=== PATIENT | male | born 1935 | race Caucasian/White ===

== ENCOUNTER 2017-08-24 08:32 | Emergency (ER) | payer BC, MEDICAID, OTHER ==
[2017-08-24] MEDS: ONDANSETRON 4 MG INJ IV (09:49)
[2017-08-24] MEDS: SOD CHLORIDE 0.9% 1,000 ML IV (09:49)
[2017-08-24] MEDS: LOPERAMIDE 2 MG CAP PO (09:49)
[2017-08-24] MEDS: morphine 4 MG/ML VIAL IV (09:54)
[2017-08-24 10:31] LABS: ADD MAN DIFF? NO
[2017-08-24 10:33] LABS: BASOPHILS % 0.2 % (0.0-2.0); HEMATOCRIT 41.6 % (42.0-52.0); HEMOGLOBIN 14.1 g/dl (14.0-18.0); LYMPHOCYTES # 1.7 10^3/ul (0.8-2.9); LYMPHOCYTES % 17.6 % (15.0-51.0); MEAN CORPUSCULAR HEMOGLOBIN 32.7 pg (29.0-33.0); MEAN CORPUSCULAR HGB CONC 33.9 g/dl (32.0-37.0); MEAN CORPUSCULAR VOLUME 96.5 fl (82.0-101.0); MONOCYTE # 0.6 10^3/ul (0.3-0.9); MONOCYTES % 5.8 % (0.0-11.0); NEUTROPHIL # 7.2 10^3/ul (1.6-7.5); NEUTROPHILS % 75.9 % (39.0-77.0); PLATELET COUNT 130 10^3/UL (140-415); POSITIVE DIFF @See below; RED BLOOD COUNT 4.31 10^6/ul (4.70-6.10); RED CELL DISTRIBUTION WIDTH 13.2 % (11.5-14.5)
[2017-08-24 10:33] LABS: WHITE BLOOD COUNT 9.5 10^3/ul (4.8-10.8)
[2017-08-24 10:37] LABS: MEAN PLATELET VOLUME 11.7 fl (7.4-10.4)
[2017-08-24 10:52] LABS: ALANINE AMINOTRANSFERASE 41 IU/L (13-69); ALBUMIN 3.8 g/dl (3.3-4.9); ALKALINE PHOSPHATASE 91 IU/L (42-121); ANION GAP 14 (8-16); ASPARTATE AMINO TRANSFERASE 28 IU/L (15-46); BILIRUBIN,INDIRECT 0.9 mg/dl (0-1.1); BILIRUBIN,TOTAL 0.9 mg/dl (0.2-1.3); BLOOD UREA NITROGEN 19 mg/dl (7-20); CALCIUM 9.1 mg/dl (8.4-10.2); CARBON DIOXIDE 30 mmol/L (21-31); CHLORIDE 104 mmol/L (97-110); CREATININE 0.98 mg/dl (0.61-1.24); GLUCOSE 94 mg/dl (70-220); LIPASE 42 U/L (23-300); POTASSIUM 4.2 mmol/L (3.5-5.1); SODIUM 144 mmol/L (135-144); TOTAL PROTEIN 7.6 g/dl (6.1-8.1)
[2017-08-24 10:59] LABS: B-TYPE NATRIURETIC PEPTIDE 91 PG/ML (0-450)
[2017-08-24 11:26] LABS: INR 1.02; PROTIME 13.5 Sec (11.9-14.9); PT RATIO 1.1
[2017-08-24 11:27] LABS: PARTIAL THROMBOPLASTIN TIME 40.5 Sec (25.0-35.0)
== END 2017-08-24 13:30 | disposition home or self-care (01) ==
LOC: E/R 08:32
DX: E86.0 Dehydration (principal); R19.7 Diarrhea, unspecified; I10 Essential (primary) hypertension; R10.9 Unspecified abdominal pain; Z79.82 Long term (current) use of aspirin
CPT/HCPCS: 36415; 74176; 80053; 83690; 83880; 85025; 85610; 85730; 96374; 99285-25

== ENCOUNTER 2018-04-09 03:33 | Inpatient (IN) | payer OTHER, BC, MEDICAID ==
[2018-04-09 04:26] LABS: ADD MAN DIFF? NO
[2018-04-09 04:33] LABS: BASOPHILS % 0.2 % (0.0-2.0); HEMATOCRIT 43.6 % (42.0-52.0); HEMOGLOBIN 14.8 g/dl (14.0-18.0); LYMPHOCYTES # 0.9 10^3/ul (0.8-2.9); LYMPHOCYTES % 7.9 % (15.0-51.0); MEAN CORPUSCULAR HEMOGLOBIN 33.3 pg (29.0-33.0); MEAN CORPUSCULAR HGB CONC 33.9 g/dl (32.0-37.0); MEAN PLATELET VOLUME 11.7 fl (7.4-10.4); MONOCYTE # 0.6 10^3/ul (0.3-0.9); MONOCYTES % 5.5 % (0.0-11.0); NEUTROPHILS % 86.1 % (39.0-77.0); PLATELET COUNT 142 10^3/UL (140-415); RED BLOOD COUNT 4.45 10^6/ul (4.70-6.10); RED CELL DISTRIBUTION WIDTH 12.8 % (11.5-14.5)
[2018-04-09 04:33] LABS: WHITE BLOOD COUNT 11.6 10^3/ul (4.8-10.8)
[2018-04-09] MEDS: ONDANSETRON 4 MG INJ IV (04:42)
[2018-04-09] MEDS: SOD CHLORIDE 0.9% 500 ML IV (04:42)
[2018-04-09] MEDS: morphine 2 MG INJ IV (04:44)
[2018-04-09 04:50] LABS: ALANINE AMINOTRANSFERASE 52 IU/L (13-69); ALBUMIN 4.2 g/dl (3.3-4.9); ALKALINE PHOSPHATASE 87 IU/L (42-121); ANION GAP 9 (5-13); ASPARTATE AMINO TRANSFERASE 44 IU/L (15-46); BILIRUBIN,INDIRECT 0.5 mg/dl (0-1.1); BILIRUBIN,TOTAL 0.5 mg/dl (0.2-1.3); BLOOD UREA NITROGEN 21 mg/dl (7-20); CALCIUM 9.3 mg/dl (8.4-10.2); CARBON DIOXIDE 26 mmol/L (21-31); CHLORIDE 108 mmol/L (97-110); CREATININE 0.98 mg/dl (0.61-1.24); GLUCOSE 142 mg/dl (70-220); LIPASE 39 U/L (23-300); POTASSIUM 4.2 mmol/L (3.5-5.1); SODIUM 143 mmol/L (135-144)
[2018-04-09 05:01] LABS: TROPONIN-I < 0.012 ng/ml (0.000-0.120)
[2018-04-09 05:24] LABS: ADD UMIC YES; UR AMORPHOUS CRYSTAL FEW /HPF (NONE SEEN); UR ASCORBIC ACID 20 mg/dL (NEGATIVE); UR BACTERIA FEW /HPF (NONE SEEN); UR BILIRUBIN (Dip) NEGATIVE (NEGATIVE); UR BLOOD (Dip) 2+ mg/dL (NEGATIVE); UR CLARITY SLIGHTLY CLOUDY (CLEAR); UR COLOR YELLOW (YELLOW); UR GLUCOSE (Dip) NEGATIVE (NEGATIVE); UR KETONES (Dip) NEGATIVE (NEGATIVE); UR LEUKOCYTE ESTERASE (Dip) 3+ Leu/ul (NEGATIVE); UR NITRITE (Dip) NEGATIVE (NEGATIVE); UR RBC 171 /HPF (0-5); UR SPECIFIC GRAVITY (Dip) 1.021 (1.003-1.030); UR SQUAMOUS EPITHELIAL CELL FEW /HPF (FEW); UR TOTAL PROTEIN (Dip) 1+ mg/dl (NEGATIVE); UR UROBILINOGEN (Dip) 2+ mg/dL (NEGATIVE); UR WBC 103 /HPF (0-5)
[2018-04-09] MEDS ORDERED: NACL 0.9% 3 ML SYG IV (06:00)
[2018-04-09] MEDS ORDERED: ONDANSETRON 4 MG INJ IV (06:00)
[2018-04-09] MEDS ORDERED: ACETAMINOPHEN 325 MG TAB PO (06:00)
[2018-04-09] MEDS: PANTOPRAZOLE 40 MG INJ IV ×2 (06:12→17:48)
[2018-04-09] MEDS: CEFTRIAXONE 1 GM/50 ML (PMX) 50 ML IVPB (06:12)
[2018-04-09] MEDS: SOD CHLORIDE 0.9% 1,000 ML IV ×4 (06:12→21:28)
[2018-04-10] MEDS: ZOLPIDEM 5 MG TAB PO (01:01)
[2018-04-10] MEDS: CEFTRIAXONE 1 GM/50 ML (PMX) 50 ML IVPB (03:35)
[2018-04-10 05:23] LABS: ADD MAN DIFF? NO
[2018-04-10] MEDS: DIPHENHYDRAMINE 25 MG CAP PO (05:24)
[2018-04-10] MEDS: PANTOPRAZOLE 40 MG INJ IV (05:24)
[2018-04-10 05:30] LABS: BASOPHILS % 0.1 % (0.0-2.0); HEMATOCRIT 38.8 % (42.0-52.0); HEMOGLOBIN 13.2 g/dl (14.0-18.0); LYMPHOCYTES # 1.3 10^3/ul (0.8-2.9); LYMPHOCYTES % 15.1 % (15.0-51.0); MEAN CORPUSCULAR HEMOGLOBIN 33.8 pg (29.0-33.0); MEAN CORPUSCULAR VOLUME 99.5 fl (82.0-101.0); MEAN PLATELET VOLUME 11.4 fl (7.4-10.4); MONOCYTE # 0.5 10^3/ul (0.3-0.9); MONOCYTES % 5.6 % (0.0-11.0); NEUTROPHIL # 6.9 10^3/ul (1.6-7.5); NEUTROPHILS % 78.9 % (39.0-77.0); PLATELET COUNT 143 10^3/UL (140-415); RED CELL DISTRIBUTION WIDTH 12.8 % (11.5-14.5)
[2018-04-10 05:30] LABS: WHITE BLOOD COUNT 8.8 10^3/ul (4.8-10.8)
[2018-04-10 05:34] LABS: HEMOGLOBIN A1C 5.3 % (0-5.9)
[2018-04-10 05:51] LABS: ALANINE AMINOTRANSFERASE 43 IU/L (13-69); ALBUMIN 3.5 g/dl (3.3-4.9); ALBUMIN/GLOBULIN RATIO 1.02; ALKALINE PHOSPHATASE 73 IU/L (42-121); ANION GAP 13 (5-13); ASPARTATE AMINO TRANSFERASE 30 IU/L (15-46); BILIRUBIN,INDIRECT 0.4 mg/dl (0-1.1); BILIRUBIN,TOTAL 0.4 mg/dl (0.2-1.3); BLOOD UREA NITROGEN 17 mg/dl (7-20); CALCIUM 8.6 mg/dl (8.4-10.2); CARBON DIOXIDE 24 mmol/L (21-31); CHLORIDE 108 mmol/L (97-110); CREATININE 0.94 mg/dl (0.61-1.24); GLUCOSE 107 mg/dl (70-220); MAGNESIUM 1.9 mg/dl (1.7-2.5); POTASSIUM 3.9 mmol/L (3.5-5.1); SODIUM 145 mmol/L (135-144); TOTAL PROTEIN 6.9 g/dl (6.1-8.1)
[2018-04-10 06:16] LABS: THYROID STIMULATING HORMONE 0.302 MIU/L (0.465-4.680)
[2018-04-10] MEDS: CHOLECALCIFEROL 1,000 UNIT TAB PO (08:50)
[2018-04-10] MEDS: ASCORBIC ACID 500 MG TAB PO (08:50)
[2018-04-10] MEDS: SOD CHLORIDE 0.9% 1,000 ML IV (12:00)
== END 2018-04-10 16:22 | disposition home or self-care (01) | DRG 690 ==
LOC: FTE 03:33 → PP2 05:51
DX: N39.0 Urinary tract infection, site not specified (principal); I69.951 Hemiplegia and hemiparesis following unspecified cerebrovascular disease affecting right dominant side; K86.1 Other chronic pancreatitis; K29.80 Duodenitis without bleeding; K27.9 Peptic ulcer, site unspecified, unspecified as acute or chronic, without hemorrhage or perforation; I10 Essential (primary) hypertension; N40.0 Benign prostatic hyperplasia without lower urinary tract symptoms
CPT/HCPCS: 36415; 71045; 74176; 76775; 80053; 81001; 83036; 83690; 83735; 84443; 84484; 85025; 87081; 87086; 93005; 96374; 96375; 99285-25; G0378

== ENCOUNTER 2018-04-20 05:30 | Inpatient (IN) | payer OTHER, BC, MEDICAID ==
[2018-04-20] MEDS: ONDANSETRON 4 MG INJ IV ×2 (05:59→09:20)
[2018-04-20] MEDS: SOD CHLORIDE 0.9% 500 ML IV (05:59)
[2018-04-20 06:08] LABS: ADD MAN DIFF? NO
[2018-04-20 06:15] LABS: BASOPHILS % 0.2 % (0.0-2.0); HEMATOCRIT 38.6 % (42.0-52.0); HEMOGLOBIN 13.1 g/dl (14.0-18.0); LYMPHOCYTES # 1.1 10^3/ul (0.8-2.9); LYMPHOCYTES % 8.7 % (15.0-51.0); MEAN CORPUSCULAR HEMOGLOBIN 33.5 pg (29.0-33.0); MEAN CORPUSCULAR HGB CONC 33.9 g/dl (32.0-37.0); MEAN CORPUSCULAR VOLUME 98.7 fl (82.0-101.0); MEAN PLATELET VOLUME 11.7 fl (7.4-10.4); MONOCYTE # 0.7 10^3/ul (0.3-0.9); MONOCYTES % 5.7 % (0.0-11.0); NEUTROPHIL # 10.5 10^3/ul (1.6-7.5); NEUTROPHILS % 84.9 % (39.0-77.0); PLATELET COUNT 169 10^3/UL (140-415); RED BLOOD COUNT 3.91 10^6/ul (4.70-6.10); RED CELL DISTRIBUTION WIDTH 12.9 % (11.5-14.5)
[2018-04-20 06:15] LABS: WHITE BLOOD COUNT 12.4 10^3/ul (4.8-10.8)
[2018-04-20 06:38] LABS: ALANINE AMINOTRANSFERASE 62 IU/L (13-69); ALBUMIN/GLOBULIN RATIO 1.14; ALKALINE PHOSPHATASE 70 IU/L (42-121); ANION GAP 14 (5-13); ASPARTATE AMINO TRANSFERASE 51 IU/L (15-46); BILIRUBIN,INDIRECT 0.5 mg/dl (0-1.1); BILIRUBIN,TOTAL 0.5 mg/dl (0.2-1.3); BLOOD UREA NITROGEN 34 mg/dl (7-20); CARBON DIOXIDE 26 mmol/L (21-31); CHLORIDE 107 mmol/L (97-110); CREATININE 1.07 mg/dl (0.61-1.24); GLUCOSE 126 mg/dl (70-220); LIPASE 106 U/L (23-300); POTASSIUM 4.2 mmol/L (3.5-5.1); SODIUM 147 mmol/L (135-144); TOTAL PROTEIN 7.5 g/dl (6.1-8.1)
[2018-04-20 06:49] LABS: TROPONIN-I < 0.012 ng/ml (0.000-0.120)
[2018-04-20 07:03] LABS: ADD UMIC NO; UR ASCORBIC ACID NEGATIVE (NEGATIVE); UR BILIRUBIN (Dip) NEGATIVE (NEGATIVE); UR BLOOD (Dip) NEGATIVE (NEGATIVE); UR CLARITY CLEAR (CLEAR); UR COLOR YELLOW (YELLOW); UR GLUCOSE (Dip) NEGATIVE (NEGATIVE); UR KETONES (Dip) NEGATIVE (NEGATIVE); UR LEUKOCYTE ESTERASE (Dip) NEGATIVE Leu/ul (NEGATIVE); UR NITRITE (Dip) NEGATIVE (NEGATIVE); UR TOTAL PROTEIN (Dip) NEGATIVE (NEGATIVE); UR UROBILINOGEN (Dip) 2+ mg/dL (NEGATIVE)
[2018-04-20] MEDS: PANTOPRAZOLE 40 MG INJ IV ×2 (09:20→18:16)
[2018-04-20] MEDS ORDERED: LIDOCAINE 2% VISC 15 ML CUP (10:42)
[2018-04-20] MEDS: LIDOCAINE 2% VISC 15 ML CUP PO (11:11)
[2018-04-20] MEDS ORDERED: NACL 0.9% 3 ML SYG IV (14:00)
[2018-04-20] MEDS ORDERED: ACETAMINOPHEN 325 MG TAB PO (14:00)
[2018-04-20] MEDS: DILTIAZEM 30 MG TAB PO ×2 (14:32→22:18)
[2018-04-20] MEDS: METOCLOPRAMIDE 10 MG INJ IV (14:34)
[2018-04-20] MEDS ORDERED: PROPOFOL 20 ML (16:19)
[2018-04-20] MEDS ORDERED: MIDAZOLAM 1 MG/ML 2 ML INJ (16:20)
[2018-04-20] MEDS ORDERED: EPHEDrine SULFATE 50 MG/5 ML SYG IV (16:30)
[2018-04-20] MEDS ORDERED: hydrALAzine 20 MG INJ IV (16:30)
[2018-04-20] MEDS ORDERED: ONDANSETRON 4 MG INJ IV (16:30)
[2018-04-20] MEDS ORDERED: HYDROmorphONE 1 MG/5 ML IV SYRINGE IV ×3 (16:30)
[2018-04-20] MEDS ORDERED: LABETALOL HCL 20MG INJ IV (16:30)
[2018-04-20] MEDS ORDERED: DIPHENHYDRAMINE 50 MG INJ IV (16:30)
[2018-04-20] MEDS: SUCRALFATE (100 MG/ML) 10ML CUP PO ×2 (17:42→20:53)
[2018-04-20] MEDS: metroNIDAZOLE 500 MG/NS (PMX) 100 ML IVPB ×2 (18:18→22:18)
[2018-04-20 19:26] LABS: HEMATOCRIT 31.3 % (42.0-52.0); HEMOGLOBIN 10.5 g/dl (14.0-18.0)
[2018-04-20 19:43] LABS: LIPASE 37 U/L (23-300)
[2018-04-20] MEDS: CIPROFLOXACIN 400MG/D5W 200 ML IVPB (20:53)
[2018-04-20] MEDS: FERROUS SULFATE (EC) 325 MG TAB PO (20:53)
[2018-04-21] MEDS: PANTOPRAZOLE 40 MG INJ IV ×2 (05:16→18:12)
[2018-04-21] MEDS: metroNIDAZOLE 500 MG/NS (PMX) 100 ML IVPB ×3 (05:17→21:58)
[2018-04-21] MEDS: DILTIAZEM 30 MG TAB PO ×3 (05:17→21:57)
[2018-04-21 05:36] LABS: ADD MAN DIFF? NO
[2018-04-21 05:46] LABS: BASOPHILS % 0.2 % (0.0-2.0); HEMATOCRIT 27.2 % (42.0-52.0); HEMOGLOBIN 9.2 g/dl (14.0-18.0); LYMPHOCYTES # 1.5 10^3/ul (0.8-2.9); LYMPHOCYTES % 14.9 % (15.0-51.0); MEAN CORPUSCULAR HEMOGLOBIN 33.9 pg (29.0-33.0); MEAN CORPUSCULAR HGB CONC 33.8 g/dl (32.0-37.0); MEAN CORPUSCULAR VOLUME 100.4 fl (82.0-101.0); MEAN PLATELET VOLUME 11.7 fl (7.4-10.4); MONOCYTE # 0.7 10^3/ul (0.3-0.9); MONOCYTES % 7.2 % (0.0-11.0); NEUTROPHIL # 7.6 10^3/ul (1.6-7.5); NEUTROPHILS % 77.3 % (39.0-77.0); PLATELET COUNT 143 10^3/UL (140-415); RED BLOOD COUNT 2.71 10^6/ul (4.70-6.10); RED CELL DISTRIBUTION WIDTH 13.1 % (11.5-14.5)
[2018-04-21 05:46] LABS: WHITE BLOOD COUNT 9.9 10^3/ul (4.8-10.8)
[2018-04-21 05:53] LABS: ALANINE AMINOTRANSFERASE 51 IU/L (13-69); ALBUMIN/GLOBULIN RATIO 1.03; ALKALINE PHOSPHATASE 51 IU/L (42-121); ANION GAP 9 (5-13); ASPARTATE AMINO TRANSFERASE 24 IU/L (15-46); BILIRUBIN,INDIRECT 0.2 mg/dl (0-1.1); BILIRUBIN,TOTAL 0.2 mg/dl (0.2-1.3); BLOOD UREA NITROGEN 36 mg/dl (7-20); CALCIUM 8.3 mg/dl (8.4-10.2); CARBON DIOXIDE 27 mmol/L (21-31); CHLORIDE 111 mmol/L (97-110); CREATININE 1.11 mg/dl (0.61-1.24); GLUCOSE 114 mg/dl (70-220); PHOSPHORUS 2.7 mg/dl (2.5-4.9); SODIUM 147 mmol/L (135-144); TOTAL PROTEIN 5.9 g/dl (6.1-8.1)
[2018-04-21] MEDS ORDERED: HYDROCHLOROTHIAZIDE 25 MG TAB PO (09:00)
[2018-04-21] MEDS ORDERED: NON-FORMULARY/PATIENT OWN MED (Fenofibrate, Micronized (Fenofibrate) 54 MG) PO (09:00)
[2018-04-21] MEDS: CIPROFLOXACIN 400MG/D5W 200 ML IVPB ×2 (09:44→20:38)
[2018-04-21] MEDS: LOSARTAN 25 MG TAB PO (09:44)
[2018-04-21] MEDS: SUCRALFATE (100 MG/ML) 10ML CUP PO ×4 (09:44→20:38)
[2018-04-21] MEDS: FERROUS SULFATE (EC) 325 MG TAB PO ×2 (09:44→21:57)
[2018-04-21] MEDS: MULTIVITAMINS THERAPEUTIC TAB PO (09:45)
[2018-04-21] MEDS: FUROSEMIDE 20 MG TAB PO (09:45)
[2018-04-21] MEDS: CHOLECALCIFEROL 1,000 UNIT TAB PO (09:45)
[2018-04-21] MEDS: FENOFIBRATE 48 MG TAB PO (09:49)
[2018-04-21] MEDS: SOD CHLORIDE 0.45% 1,000 ML IV ×2 (09:51→23:20)
[2018-04-21] MEDS: SOD CHLORIDE 0.9% 500 ML IV (09:54)
[2018-04-21 10:13] LABS: CHOLESTEROL 91 mg/dl (100-200)
[2018-04-21 10:13] LABS: CHOL/HDL RATIO 4.1 RATIO; HDL CHOLESTEROL 22 mg/dl (31-75); LDL CHOLESTEROL,CALCULATED 48 mg/dl; TRIGLYCERIDES 107 mg/dl (0-149)
[2018-04-21 10:59] LABS: HEMOGLOBIN A1C 5.3 % (0-5.9)
[2018-04-21 18:14] LABS: HEMOGLOBIN 9.2 g/dl (14.0-18.0)
[2018-04-21] MEDS: ONDANSETRON 4 MG INJ IV (22:13)
[2018-04-22] MEDS: DILTIAZEM 30 MG TAB PO ×2 (05:47→14:32)
[2018-04-22 05:50] LABS: ADD MAN DIFF? NO
[2018-04-22 05:51] LABS: WHITE BLOOD COUNT 9.6 10^3/ul (4.8-10.8)
[2018-04-22 05:51] LABS: BASOPHILS % 0.2 % (0.0-2.0); HEMATOCRIT 25.7 % (42.0-52.0); HEMOGLOBIN 8.7 g/dl (14.0-18.0); LYMPHOCYTES # 1.4 10^3/ul (0.8-2.9); LYMPHOCYTES % 14.1 % (15.0-51.0); MEAN CORPUSCULAR HEMOGLOBIN 34.3 pg (29.0-33.0); MEAN CORPUSCULAR HGB CONC 33.9 g/dl (32.0-37.0); MEAN CORPUSCULAR VOLUME 101.2 fl (82.0-101.0); MEAN PLATELET VOLUME 11.3 fl (7.4-10.4); MONOCYTE # 0.6 10^3/ul (0.3-0.9); MONOCYTES % 5.8 % (0.0-11.0); NEUTROPHIL # 7.6 10^3/ul (1.6-7.5); NEUTROPHILS % 79.6 % (39.0-77.0); PLATELET COUNT 121 10^3/UL (140-415); POSITIVE DIFF @See below; RED BLOOD COUNT 2.54 10^6/ul (4.70-6.10); RED CELL DISTRIBUTION WIDTH 13.2 % (11.5-14.5)
[2018-04-22] MEDS: metroNIDAZOLE 500 MG/NS (PMX) 100 ML IVPB (05:56)
[2018-04-22] MEDS: PANTOPRAZOLE 40 MG INJ IV (05:56)
[2018-04-22 06:22] LABS: ANION GAP 9 (5-13); BLOOD UREA NITROGEN 26 mg/dl (7-20); CALCIUM 8.3 mg/dl (8.4-10.2); CARBON DIOXIDE 26 mmol/L (21-31); CHLORIDE 108 mmol/L (97-110); CREATININE 1.13 mg/dl (0.61-1.24); GLUCOSE 102 mg/dl (70-220); POTASSIUM 3.6 mmol/L (3.5-5.1); SODIUM 143 mmol/L (135-144)
[2018-04-22] MEDS: metroNIDAZOLE 500 MG TAB PO (06:48)
[2018-04-22] MEDS: PANTOPRAZOLE (EC) 40 MG TAB PO (06:48)
[2018-04-22] MEDS: FENOFIBRATE 48 MG TAB PO (08:32)
[2018-04-22] MEDS: FUROSEMIDE 20 MG TAB PO (08:33)
[2018-04-22] MEDS: SUCRALFATE (100 MG/ML) 10ML CUP PO ×2 (08:33→14:31)
[2018-04-22] MEDS: MULTIVITAMINS THERAPEUTIC TAB PO (08:33)
[2018-04-22] MEDS: FERROUS SULFATE (EC) 325 MG TAB PO (08:33)
[2018-04-22] MEDS: CHOLECALCIFEROL 1,000 UNIT TAB PO (08:33)
[2018-04-22] MEDS: LOSARTAN 25 MG TAB PO (08:37)
[2018-04-22] MEDS: SOD CHLORIDE 0.45% 1,000 ML IV (12:40)
== END 2018-04-22 16:04 | DRG 378 ==
LOC: E/R 05:30 → 6WM 09:15
PROC: 0DJ08ZZ Inspection of Upper Intestinal Tract, Via Natural or Artificial Opening Endoscopic (ICD-10-PCS; principal; 2018-04-20 15:50)
DX: K26.0 Acute duodenal ulcer with hemorrhage (principal); E87.0 Hyperosmolality and hypernatremia; K86.1 Other chronic pancreatitis; I69.351 Hemiplegia and hemiparesis following cerebral infarction affecting right dominant side; E86.0 Dehydration; E78.5 Hyperlipidemia, unspecified; K31.819 Angiodysplasia of stomach and duodenum without bleeding; I10 Essential (primary) hypertension; K44.9 Diaphragmatic hernia without obstruction or gangrene; K29.80 Duodenitis without bleeding; K21.9 Gastro-esophageal reflux disease without esophagitis; R11.2 Nausea with vomiting, unspecified; K52.9 Noninfective gastroenteritis and colitis, unspecified; Z79.82 Long term (current) use of aspirin; Z90.49 Acquired absence of other specified parts of digestive tract
CPT/HCPCS: 36415; 74176; 80048; 80053; 80061; 81003; 83036; 83690; 83735; 84100; 84484; 85014; 85018; 85025; 86850; 86870; 86900; 86901; 93005; 96374; 99285-25

== ENCOUNTER 2018-05-12 11:25 | Emergency (ER) | payer OTHER, MEDICAID, BC | END 2018-05-12 15:40 | disposition home or self-care (01) | LOC: E/R 11:25 | DX: S09.8XXA Other specified injuries of head, initial encounter (principal); I10 Essential (primary) hypertension; W06.XXXA Fall from bed, initial encounter; Y92.9 Unspecified place or not applicable; Z79.82 Long term (current) use of aspirin | CPT/HCPCS: 70450; 93005; 99284-25 ==

== ENCOUNTER 2018-09-30 08:58 | Inpatient (IN) | payer OTHER ==
[2018-09-30 09:21] LABS: ADD MAN DIFF? NO
[2018-09-30 09:28] LABS: WHITE BLOOD COUNT 11.6 10^3/ul (4.8-10.8)
[2018-09-30 09:28] LABS: BASOPHILS % 0.3 % (0.0-2.0); HEMATOCRIT 35.2 % (42.0-52.0); HEMOGLOBIN 11.7 g/dl (14.0-18.0); LYMPHOCYTES # 1.5 10^3/ul (0.8-2.9); LYMPHOCYTES % 12.6 % (15.0-51.0); MEAN CORPUSCULAR HEMOGLOBIN 31.5 pg (29.0-33.0); MEAN CORPUSCULAR HGB CONC 33.2 g/dl (32.0-37.0); MEAN CORPUSCULAR VOLUME 94.9 fl (82.0-101.0); MEAN PLATELET VOLUME 11.6 fl (7.4-10.4); MONOCYTE # 0.7 10^3/ul (0.3-0.9); MONOCYTES % 5.6 % (0.0-11.0); NEUTROPHIL # 9.4 10^3/ul (1.6-7.5); PLATELET COUNT 162 10^3/UL (140-415); RED BLOOD COUNT 3.71 10^6/ul (4.70-6.10); RED CELL DISTRIBUTION WIDTH 14.6 % (11.5-14.5)
[2018-09-30] MEDS: PANTOPRAZOLE IV 80 MG in SOD CHLORIDE 0.9% 100 ML IVPB (09:32)
[2018-09-30] MEDS: ONDANSETRON 4 MG INJ IV (09:32)
[2018-09-30 09:41] LABS: ALANINE AMINOTRANSFERASE 24 IU/L (13-69); ALBUMIN/GLOBULIN RATIO 1.08; ALKALINE PHOSPHATASE 52 IU/L (42-121); ANION GAP 8 (5-13); ASPARTATE AMINO TRANSFERASE 25 IU/L (15-46); BILIRUBIN,INDIRECT 0.6 mg/dl (0-1.1); BILIRUBIN,TOTAL 0.6 mg/dl (0.2-1.3); BLOOD UREA NITROGEN 44 mg/dl (7-20); CALCIUM 9.1 mg/dl (8.4-10.2); CARBON DIOXIDE 27 mmol/L (21-31); CHLORIDE 109 mmol/L (97-110); CREATININE 0.97 mg/dl (0.61-1.24); GLUCOSE 135 mg/dl (70-220); POTASSIUM 4.8 mmol/L (3.5-5.1); SODIUM 144 mmol/L (135-144); TOTAL PROTEIN 7.7 g/dl (6.1-8.1)
[2018-09-30 09:44] LABS: INR 0.97
[2018-09-30 09:45] LABS: PARTIAL THROMBOPLASTIN TIME 30.2 Sec (23.0-35.0)
[2018-09-30 09:53] LABS: TROPONIN-I < 0.012 ng/ml (0.000-0.120)
[2018-09-30] MEDS ORDERED: ACETAMINOPHEN 325 MG TAB PO (10:30)
[2018-09-30] MEDS ORDERED: ONDANSETRON 4 MG INJ IV ×2 (10:30)
[2018-09-30] MEDS ORDERED: NACL 0.9% 3 ML SYG IV (10:30)
[2018-09-30] MEDS: SOD CHLORIDE 0.9% 1,000 ML IV ×2 (10:38→22:09)
[2018-09-30] MEDS: PANTOPRAZOLE IV 80 MG in SOD CHLORIDE 0.9% 100 ML IV (10:38)
[2018-09-30] MEDS: OLANZAPINE 10 MG VIAL IM (11:27)
[2018-10-01] MEDS: PANTOPRAZOLE IV 80 MG in SOD CHLORIDE 0.9% 100 ML IV ×2 (00:03→05:51)
[2018-10-01] MEDS: SOD CHLORIDE 0.9% 1,000 ML IV (05:51)
[2018-10-01 06:44] LABS: ADD MAN DIFF? NO
[2018-10-01 06:52] LABS: WHITE BLOOD COUNT 8.5 10^3/ul (4.8-10.8)
[2018-10-01 06:52] LABS: BASOPHILS % 0.2 % (0.0-2.0); HEMATOCRIT 27.9 % (42.0-52.0); HEMOGLOBIN 9.3 g/dl (14.0-18.0); LYMPHOCYTES # 1.5 10^3/ul (0.8-2.9); LYMPHOCYTES % 17.6 % (15.0-51.0); MEAN CORPUSCULAR HEMOGLOBIN 32.1 pg (29.0-33.0); MEAN CORPUSCULAR HGB CONC 33.3 g/dl (32.0-37.0); MEAN CORPUSCULAR VOLUME 96.2 fl (82.0-101.0); MEAN PLATELET VOLUME 11.3 fl (7.4-10.4); MONOCYTE # 0.5 10^3/ul (0.3-0.9); MONOCYTES % 6.1 % (0.0-11.0); NEUTROPHIL # 6.4 10^3/ul (1.6-7.5); NEUTROPHILS % 75.6 % (39.0-77.0); PLATELET COUNT 129 10^3/UL (140-415); RED CELL DISTRIBUTION WIDTH 14.7 % (11.5-14.5)
[2018-10-01 06:59] LABS: HEMOGLOBIN A1C 5.2 % (0-5.9)
[2018-10-01 07:12] LABS: ALANINE AMINOTRANSFERASE 26 IU/L (13-69); ALBUMIN 2.9 g/dl (3.3-4.9); ALBUMIN/GLOBULIN RATIO 0.93; ALKALINE PHOSPHATASE 47 IU/L (42-121); ANION GAP 7 (5-13); ASPARTATE AMINO TRANSFERASE 18 IU/L (15-46); BILIRUBIN,INDIRECT 0.4 mg/dl (0-1.1); BILIRUBIN,TOTAL 0.4 mg/dl (0.2-1.3); BLOOD UREA NITROGEN 36 mg/dl (7-20); CALCIUM 8.1 mg/dl (8.4-10.2); CARBON DIOXIDE 25 mmol/L (21-31); CHLORIDE 115 mmol/L (97-110); CREATININE 1.03 mg/dl (0.61-1.24); GLUCOSE 100 mg/dl (70-220); MAGNESIUM 1.9 mg/dl (1.7-2.5); POTASSIUM 3.9 mmol/L (3.5-5.1); SODIUM 147 mmol/L (135-144)
[2018-10-01] MEDS: morphine 2 MG INJ IV (11:06)
[2018-10-01] MEDS: PROPOFOL 40 ML (13:28)
[2018-10-01] MEDS ORDERED: PROPOFOL 200 MG INJ (13:28)
[2018-10-01] MEDS: FENTAnyl 50 MCG/ML VIAL (13:28)
[2018-10-01] MEDS: LIDOCAINE 2% (SDV) 5 ML INJ (13:28)
[2018-10-01] MEDS: PANTOPRAZOLE (EC) 40 MG TAB PO (18:20)
[2018-10-01] MEDS: HALOPERIDOL 5 MG INJ IM (21:07)
[2018-10-01] MEDS: ALBUTEROL/IPRATROPIUM (NEB) 3 ML AMP HHN (22:04)
[2018-10-01] MEDS: LORAZEPAM 2 MG INJ IV (22:26)
[2018-10-02] MEDS: OLANZAPINE 10 MG VIAL IM (01:25)
[2018-10-02 05:29] LABS: ADD MAN DIFF? NO
[2018-10-02 05:36] LABS: WHITE BLOOD COUNT 6.9 10^3/ul (4.8-10.8)
[2018-10-02 05:36] LABS: BASOPHILS % 0.1 % (0.0-2.0); HEMATOCRIT 25.1 % (42.0-52.0); HEMOGLOBIN 8.5 g/dl (14.0-18.0); LYMPHOCYTES # 1.3 10^3/ul (0.8-2.9); LYMPHOCYTES % 19.1 % (15.0-51.0); MEAN CORPUSCULAR HEMOGLOBIN 32.4 pg (29.0-33.0); MEAN CORPUSCULAR HGB CONC 33.9 g/dl (32.0-37.0); MEAN CORPUSCULAR VOLUME 95.8 fl (82.0-101.0); MEAN PLATELET VOLUME 11.4 fl (7.4-10.4); MONOCYTE # 0.5 10^3/ul (0.3-0.9); MONOCYTES % 7.9 % (0.0-11.0); NEUTROPHILS % 72.5 % (39.0-77.0); PLATELET COUNT 123 10^3/UL (140-415); RED BLOOD COUNT 2.62 10^6/ul (4.70-6.10); RED CELL DISTRIBUTION WIDTH 14.4 % (11.5-14.5)
[2018-10-02 06:14] LABS: ANION GAP 6 (5-13); BLOOD UREA NITROGEN 25 mg/dl (7-20); CALCIUM 8.4 mg/dl (8.4-10.2); CARBON DIOXIDE 25 mmol/L (21-31); CHLORIDE 113 mmol/L (97-110); CREATININE 1.06 mg/dl (0.61-1.24); GLUCOSE 105 mg/dl (70-220); PHOSPHORUS 3.5 mg/dl (2.5-4.9); POTASSIUM 3.8 mmol/L (3.5-5.1); SODIUM 144 mmol/L (135-144)
[2018-10-02] MEDS: PANTOPRAZOLE (EC) 40 MG TAB PO (09:18)
[2018-10-02] MEDS: ALBUTEROL/IPRATROPIUM (NEB) 3 ML AMP HHN (11:22)
== END 2018-10-02 14:35 | DRG 378 ==
LOC: E/R 08:58 → TEL 10:24 → MS1 10-01 18:36
PROC: 0DD68ZX Extraction of Stomach, Via Natural or Artificial Opening Endoscopic, Diagnostic (ICD-10-PCS; principal; 2018-10-01 12:30)
DX: K92.0 Hematemesis (principal); D62 Acute posthemorrhagic anemia; K86.1 Other chronic pancreatitis; K20.9 Esophagitis, unspecified; K29.70 Gastritis, unspecified, without bleeding; K44.9 Diaphragmatic hernia without obstruction or gangrene; Z86.73 Personal history of transient ischemic attack (TIA), and cerebral infarction without residual deficits; F39 Unspecified mood [affective] disorder; F03.90 Unspecified dementia, unspecified severity, without behavioral disturbance, psychotic disturbance, mood disturbance, and anxiety
CPT/HCPCS: 36415; 71045; 80053; 80069; 83036; 83735; 84484; 85025; 85610; 85730; 86850; 86870; 86900; 86901; 87081; 88305; 88312; 93005; 94640; 94664; 96374; 96375; 99285-25

== ENCOUNTER 2018-10-10 07:32 | Inpatient (IN) | payer OTHER ==
[2018-10-10] MEDS: ALBUTEROL 0.083% (NEB) 2.5 MG/3 ML AMP HHN (07:56)
[2018-10-10 08:09] LABS: WHITE BLOOD COUNT 13.8 10^3/ul (4.8-10.8)
[2018-10-10 08:09] LABS: ABNORMAL IP MESSAGE 1; HEMATOCRIT 21.3 % (42.0-52.0); MEAN CORPUSCULAR HEMOGLOBIN 32.1 pg (29.0-33.0); MEAN CORPUSCULAR HGB CONC 31.5 g/dl (32.0-37.0); MEAN CORPUSCULAR VOLUME 101.9 fl (82.0-101.0); MEAN PLATELET VOLUME 11.3 fl (7.4-10.4); NUCLEATED RED BLOOD CELLS% 0.2 /100WBC (0.0-0.0); PLATELET COUNT 177 10^3/UL (140-415); POSITIVE DIFF @See below; RED BLOOD COUNT 2.09 10^6/ul (4.70-6.10); RED CELL DISTRIBUTION WIDTH 15.9 % (11.5-14.5)
[2018-10-10 08:17] LABS: HEMOGLOBIN 6.7 g/dl (14.0-18.0); PATH REVIEW? YES
[2018-10-10 08:18] LABS: ADD MAN DIFF? YES
[2018-10-10 08:29] LABS: INR 1.15; PROTIME 14.8 Sec (11.9-14.9); PT RATIO 1.2
[2018-10-10 08:30] LABS: PARTIAL THROMBOPLASTIN TIME 32.6 Sec (23.0-35.0)
[2018-10-10] MEDS: CEFEPIME 1GM/50 ML (PMX) 50 ML IVPB (08:37)
[2018-10-10 08:39] LABS: ALANINE AMINOTRANSFERASE 20 IU/L (13-69); ALBUMIN 3.1 g/dl (3.3-4.9); ALKALINE PHOSPHATASE 46 IU/L (42-121); ANION GAP 6 (5-13); ASPARTATE AMINO TRANSFERASE 21 IU/L (15-46); BILIRUBIN,INDIRECT 0.4 mg/dl (0-1.1); BILIRUBIN,TOTAL 0.4 mg/dl (0.2-1.3); BLOOD UREA NITROGEN 49 mg/dl (7-20); CALCIUM 8.5 mg/dl (8.4-10.2); CARBON DIOXIDE 26 mmol/L (21-31); CHLORIDE 112 mmol/L (97-110); CREATININE 1.07 mg/dl (0.61-1.24); GLUCOSE 143 mg/dl (70-220); POTASSIUM 4.1 mmol/L (3.5-5.1); SODIUM 144 mmol/L (135-144); TOTAL PROTEIN 6.2 g/dl (6.1-8.1)
[2018-10-10 08:49] LABS: B-TYPE NATRIURETIC PEPTIDE 121 PG/ML (0-450); TROPONIN-I < 0.012 ng/ml (0.000-0.120)
[2018-10-10] MEDS: PANTOPRAZOLE IV 80 MG in SOD CHLORIDE 0.9% 100 ML IVPB (09:21)
[2018-10-10 09:45] LABS: ANISOCYTOSIS 1+ (0-0); EOSINOPHILS % (M) 1 % (0-7); HYPOCHROMASIA 1+ (0-0); LYMPHOCYTES #M 1.5 10^3/ul (0.8-2.9); LYMPHOCYTES % (M) 11 % (15-51); MICROCYTOSIS 1+ (0-0); MONOCYTE #M 0.4 10^3/ul (0.3-0.9); MONOCYTES % (M) 3 % (0-11); PLATELET ESTIMATE NORMAL; POLYCHROMASIA 1+ (0-0); RBC MORPHOLOGY COMMENT @See below; SEGMENTED NEUTROPHILS (M) % 85 % (39-77); SMUDGE%M 9 % (0-0); WBC MORPHOLOGY COMMENT @See below
[2018-10-10] MEDS: VANCOMYCIN 1 GM (PMX) 250 ML IVPB (09:57)
[2018-10-10] MEDS: PANTOPRAZOLE IV 80 MG in SOD CHLORIDE 0.9% 100 ML IV (09:57)
[2018-10-10] MEDS: SOD CHLORIDE 0.9% 1,000 ML IV (10:47)
[2018-10-10] MEDS ORDERED: ONDANSETRON 4 MG INJ IV (11:00)
[2018-10-10] MEDS ORDERED: ACETAMINOPHEN 325 MG TAB PO ×2 (11:00→13:00)
[2018-10-10] MEDS ORDERED: DOCUSATE SODIUM 100 MG CAP PO (13:00)
[2018-10-10] MEDS ORDERED: NACL 0.9% 3 ML SYG IV (13:00)
[2018-10-10] MEDS ORDERED: LORATADINE 10 MG TAB PO (13:00)
[2018-10-10 13:21] LABS: IRON 74 ug/dl (35-150)
[2018-10-10 13:30] LABS: % IRON SATURATION 27 % SAT (22-52); TOTAL IRON BINDING CAPACITY 275 ug/dl (241-421)
[2018-10-10] MEDS: SOD FERRIC GLUC COMPLX 125 MG in SOD CHLORIDE 0.9% 100 ML IVPB (14:39)
[2018-10-10 14:47] LABS: FOLATE 12.5 ng/ml (2.8-20.0)
[2018-10-10] MEDS: ALBUTEROL/IPRATROPIUM (NEB) 3 ML AMP HHN ×3 (14:49→20:00)
[2018-10-10] MEDS: BARIUM SULF 2% 450 ML BTL (BERRY SMOOTHIE) PO (15:58)
[2018-10-10] MEDS: PANTOPRAZOLE 40 MG INJ IV (17:30)
[2018-10-10] MEDS: SOD CHLORIDE 0.9% 100 ML (18:30)
[2018-10-10] MEDS: IOHEXOL 300MG/ML 150 ML BTL (18:30)
[2018-10-10 18:35] LABS: LACTATE DEHYDROGENASE 500 IU/L (313-618)
[2018-10-10 19:08] LABS: THYROID STIMULATING HORMONE 0.128 MIU/L (0.465-4.680)
[2018-10-11] MEDS: ALBUTEROL/IPRATROPIUM (NEB) 3 ML AMP HHN ×6 (00:29→20:18)
[2018-10-11] MEDS: PANTOPRAZOLE 40 MG INJ IV ×2 (04:56→17:52)
[2018-10-11] MEDS: DIPHENHYDRAMINE 50 MG INJ IV (04:57)
[2018-10-11] MEDS ORDERED: morphine 2 MG INJ IV (05:00)
[2018-10-11] MEDS: HALOPERIDOL 5 MG INJ IM (05:49)
[2018-10-11 06:32] LABS: PROTEIN, TOTAL 5.8 g/dL (6.1-8.1)
[2018-10-11] MEDS: ESCITALOPRAM 10 MG TAB PO (08:39)
[2018-10-11] MEDS: MULTIVITAMINS THERAPEUTIC TAB PO (08:40)
[2018-10-11] MEDS: CHOLECALCIFEROL 2,000 UNIT CAP PO (08:40)
[2018-10-11 14:39] LABS: ADD MAN DIFF? NO
[2018-10-11 14:42] LABS: ABNORMAL IP MESSAGE 1; BASOPHILS % 0.1 % (0.0-2.0); HEMATOCRIT 20.3 % (42.0-52.0); LYMPHOCYTES # 1.3 10^3/ul (0.8-2.9); LYMPHOCYTES % 13.8 % (15.0-51.0); MEAN CORPUSCULAR HEMOGLOBIN 32.5 pg (29.0-33.0); MEAN CORPUSCULAR HGB CONC 33.5 g/dl (32.0-37.0); MEAN CORPUSCULAR VOLUME 97.1 fl (82.0-101.0); MEAN PLATELET VOLUME 10.7 fl (7.4-10.4); MONOCYTE # 0.5 10^3/ul (0.3-0.9); MONOCYTES % 5.3 % (0.0-11.0); NEUTROPHIL # 7.4 10^3/ul (1.6-7.5); NEUTROPHILS % 79.8 % (39.0-77.0); NUCLEATED RED BLOOD CELLS # 0.1 10^3/ul (0.0-0.0); NUCLEATED RED BLOOD CELLS% 0.5 /100WBC (0.0-0.0); PLATELET COUNT 153 10^3/UL (140-415); POSITIVE DIFF @See below; RED BLOOD COUNT 2.09 10^6/ul (4.70-6.10); RED CELL DISTRIBUTION WIDTH 17.5 % (11.5-14.5); RETICULOCYTE COUNT # 0.156 X10^6 (0.020-0.110); RETICULOCYTE COUNT % 7.5 % (0.5-1.5); RETICULOCYTE RBC 2.09
[2018-10-11 14:42] LABS: WHITE BLOOD COUNT 9.2 10^3/ul (4.8-10.8)
[2018-10-11 14:52] LABS: HEMOGLOBIN A1C 5.4 % (0-5.9)
[2018-10-11 15:00] LABS: ALANINE AMINOTRANSFERASE 26 IU/L (13-69); ALKALINE PHOSPHATASE 50 IU/L (42-121); ANION GAP 6 (5-13); ASPARTATE AMINO TRANSFERASE 27 IU/L (15-46); BILIRUBIN,INDIRECT 0.9 mg/dl (0-1.1); BILIRUBIN,TOTAL 0.9 mg/dl (0.2-1.3); BLOOD UREA NITROGEN 26 mg/dl (7-20); CALCIUM 8.4 mg/dl (8.4-10.2); CARBON DIOXIDE 24 mmol/L (21-31); CHLORIDE 115 mmol/L (97-110); CHOL/HDL RATIO 3.4 RATIO; CHOLESTEROL 94 mg/dl (100-200); CREATININE 1.04 mg/dl (0.61-1.24); GLUCOSE 152 mg/dl (70-220); HDL CHOLESTEROL 27 mg/dl (31-75); LDL CHOLESTEROL,CALCULATED 41 mg/dl; MAGNESIUM 1.9 mg/dl (1.7-2.5); POTASSIUM 3.8 mmol/L (3.5-5.1); SODIUM 145 mmol/L (135-144); TRIGLYCERIDES 130 mg/dl (0-149)
[2018-10-11 15:11] LABS: HEMOGLOBIN 6.8 g/dl (14.0-18.0)
[2018-10-11 16:01] LABS: ALBUMIN 2.9 g/dL (3.8-4.8); ALPHA-1-GLOBULINS 0.4 g/dL (0.2-0.3); ALPHA-2-GLOBULINS 0.6 g/dL (0.5-0.9); BETA 2 GLOBULINS 0.4 g/dL (0.2-0.5); BETA GLOBULINS 0.4 g/dL (0.4-0.6); GAMMA GLOBULINS 1.2 g/dL (0.8-1.7)
[2018-10-11 16:51] LABS: HAPTOGLOBIN 125 mg/dL (43-212)
[2018-10-11] MEDS: traZODone 50 MG TAB PO (20:34)
[2018-10-11] MEDS: ROPINIROLE 0.25 MG TAB PO (20:34)
[2018-10-11] MEDS: GUAIFENESIN/DM 5ML CUP PO (22:39)
[2018-10-11] MEDS: HYDROCODONE/APAP (5/325) TAB PO (22:39)
[2018-10-12] MEDS: ALBUTEROL/IPRATROPIUM (NEB) 3 ML AMP HHN ×6 (00:24→20:16)
[2018-10-12 05:09] LABS: ADD MAN DIFF? NO
[2018-10-12 05:14] LABS: WHITE BLOOD COUNT 7.6 10^3/ul (4.8-10.8)
[2018-10-12 05:14] LABS: BASOPHILS % 0.3 % (0.0-2.0); HEMATOCRIT 22.7 % (42.0-52.0); HEMOGLOBIN 7.3 g/dl (14.0-18.0); LYMPHOCYTES # 1.4 10^3/ul (0.8-2.9); LYMPHOCYTES % 18.1 % (15.0-51.0); MEAN CORPUSCULAR HEMOGLOBIN 31.5 pg (29.0-33.0); MEAN CORPUSCULAR HGB CONC 32.2 g/dl (32.0-37.0); MEAN CORPUSCULAR VOLUME 97.8 fl (82.0-101.0); MEAN PLATELET VOLUME 10.8 fl (7.4-10.4); MONOCYTE # 0.5 10^3/ul (0.3-0.9); MONOCYTES % 6.5 % (0.0-11.0); NEUTROPHIL # 5.7 10^3/ul (1.6-7.5); NEUTROPHILS % 74.4 % (39.0-77.0); NUCLEATED RED BLOOD CELLS% 0.4 /100WBC (0.0-0.0); PLATELET COUNT 135 10^3/UL (140-415); POSITIVE DIFF @See below; RED BLOOD COUNT 2.32 10^6/ul (4.70-6.10); RED CELL DISTRIBUTION WIDTH 18.3 % (11.5-14.5)
[2018-10-12 05:47] LABS: ANION GAP 5 (5-13); BLOOD UREA NITROGEN 22 mg/dl (7-20); CALCIUM 8.3 mg/dl (8.4-10.2); CARBON DIOXIDE 26 mmol/L (21-31); CHLORIDE 113 mmol/L (97-110); CREATININE 1.08 mg/dl (0.61-1.24); GLUCOSE 107 mg/dl (70-220); POTASSIUM 3.6 mmol/L (3.5-5.1); SODIUM 144 mmol/L (135-144)
[2018-10-12] MEDS: PANTOPRAZOLE 40 MG INJ IV ×2 (06:45→18:31)
[2018-10-12] MEDS: ESCITALOPRAM 10 MG TAB PO (10:09)
[2018-10-12] MEDS: MULTIVITAMINS THERAPEUTIC TAB PO (10:09)
[2018-10-12] MEDS: CHOLECALCIFEROL 2,000 UNIT CAP PO (10:09)
[2018-10-12] MEDS: predniSONE 20 MG TAB PO (10:10)
[2018-10-12] MEDS: FENTAnyl 50 MCG/ML VIAL (12:21)
[2018-10-12] MEDS: LIDOCAINE 1% (MDV) 20 ML INJ (12:23)
[2018-10-12] MEDS: ROPINIROLE 0.25 MG TAB PO (20:04)
[2018-10-12] MEDS: traZODone 50 MG TAB PO (20:04)
[2018-10-12 21:42] LABS: ERYTHROPOIETIN 173.1 mIU/mL (2.6-18.5)
[2018-10-13 00:25] LABS: AHG CROSSMATCH 1 4
[2018-10-13] MEDS: ALBUTEROL/IPRATROPIUM (NEB) 3 ML AMP HHN ×5 (01:22→17:00)
[2018-10-13 06:04] LABS: ADD MAN DIFF? NO
[2018-10-13 06:11] LABS: BASOPHILS % 0.2 % (0.0-2.0); HEMOGLOBIN 9.4 g/dl (14.0-18.0); LYMPHOCYTES % 7.1 % (15.0-51.0); MEAN CORPUSCULAR HEMOGLOBIN 32.6 pg (29.0-33.0); MEAN CORPUSCULAR HGB CONC 33.6 g/dl (32.0-37.0); MEAN CORPUSCULAR VOLUME 97.2 fl (82.0-101.0); MEAN PLATELET VOLUME 10.9 fl (7.4-10.4); MONOCYTE # 0.5 10^3/ul (0.3-0.9); NEUTROPHIL # 11.7 10^3/ul (1.6-7.5); NEUTROPHILS % 87.9 % (39.0-77.0); NUCLEATED RED BLOOD CELLS # 0.1 10^3/ul (0.0-0.0); NUCLEATED RED BLOOD CELLS% 0.4 /100WBC (0.0-0.0); PLATELET COUNT 156 10^3/UL (140-415); RED BLOOD COUNT 2.88 10^6/ul (4.70-6.10); RED CELL DISTRIBUTION WIDTH 17.3 % (11.5-14.5)
[2018-10-13 06:11] LABS: WHITE BLOOD COUNT 13.3 10^3/ul (4.8-10.8)
[2018-10-13] MEDS: PANTOPRAZOLE 40 MG INJ IV (06:44)
[2018-10-13 07:12] LABS: ANION GAP 9 (5-13); BLOOD UREA NITROGEN 23 mg/dl (7-20); CALCIUM 8.9 mg/dl (8.4-10.2); CARBON DIOXIDE 21 mmol/L (21-31); CHLORIDE 113 mmol/L (97-110); CREATININE 1.02 mg/dl (0.61-1.24); GLUCOSE 136 mg/dl (70-220); POTASSIUM 3.3 mmol/L (3.5-5.1); SODIUM 143 mmol/L (135-144)
[2018-10-13] MEDS: MULTIVITAMINS THERAPEUTIC TAB PO (08:18)
[2018-10-13] MEDS: predniSONE 20 MG TAB PO (08:18)
[2018-10-13] MEDS: ESCITALOPRAM 10 MG TAB PO (08:18)
[2018-10-13] MEDS: CHOLECALCIFEROL 2,000 UNIT CAP PO (08:18)
[2018-10-13] MEDS ORDERED: POTASSIUM CHLORIDE 100 ML IVPB (11:00)
[2018-10-13 11:18] LABS: FREE T4 (FREE THYROXINE) 1.19 ng/dl (0.85-1.93)
[2018-10-13 11:19] LABS: FREE T3 3.22 pg/ml (2.77-5.27)
[2018-10-13] MEDS: POTASSIUM CHLORIDE (SR) 20 MEQ TAB PO (12:04)
[2018-10-13 13:13] LABS: HEPATITIS C VIRAL ANTIBODY NEGATIVE (NEGATIVE)
[2018-10-13 14:02] LABS: RAPID PLASMA REAGIN NONREACTIVE (NR)
== END 2018-10-13 15:45 | disposition home health service (06) | DRG 803 ==
LOC: E/R 07:32 → 6WM 10:48
PROC: 30233N1 Transfusion of Nonautologous Red Blood Cells into Peripheral Vein, Percutaneous Approach (ICD-10-PCS; 2018-10-11)
PROC: 0QB33ZX Excision of Left Pelvic Bone, Percutaneous Approach, Diagnostic (ICD-10-PCS; principal; 2018-10-12)
PROC: 07DR3ZX Extraction of Iliac Bone Marrow, Percutaneous Approach, Diagnostic (ICD-10-PCS; 2018-10-12)
DX: D53.9 Nutritional anemia, unspecified (principal); K86.1 Other chronic pancreatitis; J20.9 Acute bronchitis, unspecified; K29.50 Unspecified chronic gastritis without bleeding; E55.9 Vitamin D deficiency, unspecified; E66.9 Obesity, unspecified; F32.9 Major depressive disorder, single episode, unspecified; D17.79 Benign lipomatous neoplasm of other sites; E78.2 Mixed hyperlipidemia; N40.0 Benign prostatic hyperplasia without lower urinary tract symptoms; F03.90 Unspecified dementia, unspecified severity, without behavioral disturbance, psychotic disturbance, mood disturbance, and anxiety; I10 Essential (primary) hypertension; K21.0 Gastro-esophageal reflux disease with esophagitis; Z86.73 Personal history of transient ischemic attack (TIA), and cerebral infarction without residual deficits; Z90.49 Acquired absence of other specified parts of digestive tract
CPT/HCPCS: 36415; 36430; 71045; 74177; 77012; 80048; 80053; 80061; 82607; 82668; 82728; 82746; 83010; 83036; 83540; 83605; 83615; 83735; 83880; 84155; 84165; 84439; 84443; 84481; 84484; 85025; 85045; 85610; 85730; 86592; 86803; 86850; 86870; 86880; 86900; 86901; 86920; 87040-91; 88305; 88311; 88313; 94640; 94664; 96374; 96375; 96376; 97162; 99285-25